=== PATIENT | male | born 2000 | race Caucasian/White ===

== ENCOUNTER 2020-10-02 15:24 | Emergency (ER) | payer OTHER ==
[2020-10-02 15:31] VITALS: BP 134/75
[2020-10-02] MEDS ORDERED: ACETAMINOPHEN 325 MG TABLET PO STA (15:45)
[2020-10-02] MEDS ORDERED: IBUPROFEN 600 MG TABLET PO STA (15:45)
--- NOTE | 2020-10-02 15:46 | ED Physician Documentation ---
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 This persisted for several minutes and has improved except mild DYSON.) Where head injury occurred: Work Timing - onset: How many hours ago (11/17) Location of injury: Right, Front Quality of pain: Aching Associated symptoms: AMS (felt dazed for several minutes, then off balance and "woobly" in legs.). No: LOC Symptoms improve with: Rest Contributing factors: No: Anticoagulated, Intoxicated Similar symptoms before: Has not had sx before Recently seen: Not recently seen Review of Systems Constitutional: denies: Fever, Chills Nose: denies: Rhinorrhea / runny nose, Congestion Throat: denies: Sore throat Respiratory: denies: Cough GI: denies: Nausea, Vomiting Skin: denies: Abrasion (s), Laceration (s) Neurologic: reports: Altered mental status (felt slightly hard to speak for few minutes.), Headache (locally at injury/impact area.). denies: Confused PD PAST MEDICAL HISTORY - Past Medical History Past Medical History: No - Allergies Allergies/Adverse Reactions: Allergies Allergy/AdvReac Type Severity Reaction Status Date / Time No Known Drug Allergies Allergy Verified 10/02/20 15:28 PD ED PE NORMAL - Vitals Vital signs reviewed: Yes - General General: Alert and oriented X 3, No acute distress, Well developed/nourished - HEENT HEENT: PERRL, EOMI (fundi normal. ), Other (mild tender right parietal area without depression/deformity. 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 There is not seen degree of symptoms or any focality to suggest needing for imaging. Shared decision with the patient is to forego CT scan.), d/w patient Departure - Departure Disposition: 01 Home, Self Care Clinical Impression: Head contusion Qualifiers: Encounter type: initial encounter Contusion of head detail: scalp Qualified Code(s): S00.03XA - Contusion of scalp, initial encounter Mild concussion Qualifiers: Encounter type: initial encounter Loss of consciousness presence/duration: without LOC Qualified Code(s): S06.0X0A - Concussion without loss of con sciousness, initial encounter Condition: Stable Record reviewed to determine appropriate education?: Yes Instructions: ED Concussion Follow-Up: [facility] [Provider Group] Comments: By your description of symptoms, it does sound like a very mild/minimal concussive symptoms. As such would have you take it easy with light duty for 1 to 2 days. Tylenol or ibuprofen as needed for mild headache or pains. Expect likely some mild headaches and perhaps a little off balance or mild slow thought process for a day or 2. If you seemed improved to your normal level within a couple of days and back to normal activity is okay. Any symptoms beyond that, follow-up with your primary care. In the next day or 2 avoid any vigorous sports or working out. Light activity is okay. Return if worsening symptoms. Your level of symptoms do not suggest any higher degree of injury such as fractures or bleeding so a CT scan is not indicated at this time. Forms: Activity restrictions
== END 2020-10-02 15:53 | disposition home or self-care (01) ==
LOC: ED 15:24
DX: S00.03XA Contusion of scalp, initial encounter (principal); S06.0X0A Concussion without loss of consciousness, initial encounter; W20.8XXA Other cause of strike by thrown, projected or falling object, initial encounter; Y93.89 Activity, other specified; Y92.89 Other specified places as the place of occurrence of the external cause; Y99.1 Military activity
CPT/HCPCS: 99282; 99284; A9270

== ENCOUNTER 2022-04-30 04:31 | Emergency (ER) | payer OTHER ==
[2022-04-30] MEDS ORDERED: ACETAMINOPHEN 325 MG TABLET PO STA (04:54)
[2022-04-30] MEDS ORDERED: SODIUM CHLORIDE 0.9% 1,000 ML IV STA (05:03)
[2022-04-30] MEDS ORDERED: KETOROLAC 30 MG/ML VIAL IVP STA (05:03)
[2022-04-30] MEDS ORDERED: DEXAMETHASONE 10 MG/ML VIAL IVP STA (05:03)
[2022-04-30] MEDS ORDERED: cefTRIAXone 1 GM in SODIUM CHLORIDE 0.9% MINIBAG 100 ML IV STA (05:04)
--- NOTE | 2022-04-30 05:06 | ED Physician Documentation ---
PD HPI URI - Stated complaint Stated Complaint: FEVER,DIZZY - Chief complaint Chief Complaint: Fever - History obtained from History obtained from: Patient - History of Present Illness Timing - onset: How many days ago (3) Timing duration: Days (3) Timing details: Gradual onset, Still present Associated symptoms: Fever, Chills, Sweats, Nasal congestion, Rhinorrhea, Dry cough, Dyspnea, Other (tonsil swelling and pain aches and pains everywhere) Improves by: Rest, Medication Similar symptoms before: Diagnosis (tonsilitis) Recently seen: Other (had COVID test done today not resulted.) - Additional information Additional information: 22-year-old 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 He has had COVID in November of this year and he did take a test today he does not have the results. Review of Systems Constitutional: reports: Fever, Chills, Myalgias, Fatigue, Sweats Eyes: denies: Decreased vision Ears: denies: Ear pain Nose: reports: Rhinorrhea / runny nose, Congestion Throat: reports: Sore throat Cardiac: denies: Chest pain / pressure, Palpitations Respiratory: reports: Dyspnea, Cough (3 and [id number] man has developed a cough congestion and a fever over the past 4 days. Tonight his mother indicates that he is "cupping both of his ears and crying uncontrollably. This patient was seen 2 months ago with his nose crusted shut despite treatment with 3 different antibio) GI: denies: Abdominal Pain, Nausea, Vomiting : denies: Dysuria, Frequency PD PAST MEDICAL HISTORY - Present Medications Home Medications: Ambulatory Orders Medication Instructions Recorded Confirmed Amox/Clav 875/125 [Augmentin] 1 each PO Q12H #20 tablet 04/30/22 Temazepam [Restoril] 15 mg PO DAILY 04/30/22 04/30/22 - Allergies Allergies/Adverse Reactions: Allergies Allergy/AdvReac Type Severity Reaction Status Date / Time No Known Drug Allergies Allergy Verified 10/02/20 15:28 PD ED PE NORMAL - Vitals Vital signs reviewed: Yes (Febrile and tachycardic) - General General: Alert and oriented X 3, Well developed/nourished, Other (Pale appearing 22-year-old male is warm to the touch.) - HEENT HEENT: Atraumatic, PERRL, EOMI, Other (Both TMs have minimal erythema the pharynx shows 2+ exudative tonsils worse on the left than the right.) - Neck Neck: Supple, no meningeal sign, No bony TTP - Cardiac Cardiac: RRR, No murmur - Respiratory Respiratory: No respiratory distress, Other (Diminished breath sounds bilaterally) - Abdomen Abdomen: Non tender - Back Back: No CVA TTP, No spinal TTP - Derm Derm: Normal color, Warm and dry, No rash - Extremities Extremities: No deformity, No edema - Neuro Neuro: Alert and oriented X 3, sample patternmaker 2-12 intact, No motor deficit, No sensory deficit, Normal speech Eye Opening: Spontaneous Motor: Obeys Commands Verbal: Oriented GCS Score: 15 - Psych Psych: Normal mood, Normal affect Results - Vitals Vitals: Vital Signs - 24 hr 04/30/22 04/30/22 04/30/22 04:47 06:05 07:24 Temperature 38.0 C H 38.9 C H 36.9 C Heart Rate 104 H 94 Respiratory 22 18 Rate Blood Pressure 128/70 117/49 L O2 Saturation 99 95 Oxygen O2 Source Room air - Labs Labs: Laboratory Tests 04/30/22 04/30/22 04/30/22 05:25 05:25 07:14 WBC 20.2 H RBC 5.16 Hgb 15.5 Hct 45.8 MCV 88.8 MCH 30.0 MCHC 33.8 RDW 12.2 Plt Count 233 MPV 11.1 Neut # (Auto) Not Reportable Lymph # (Auto) Not Reportable [place] # (Auto) Not Reportable Eos # (Auto) Not Reportable Baso # (Auto) Not Reportable Absolute Nucleated RBC Not Reportable Total Counted 100 Band Neuts % (Manual) 2 Abnorm Lymph % (Manual) 0 Nucleated RBC % Not Reportable Neutrophils # (Manual) 18.2 H Lymphocytes # (Manual) 0.6 L Monocytes # (Manual) 1.4 H Eosinophils # (Manual) 0.0 Basophils # (Manual) 0.0 Differential Comment MANUAL DIFFERENTIAL Manual Slide Review Indicated Platelet Estimate NORMAL (130-450,000) Platelet Morphology NORMAL APPEARANCE RBC Morph Micro Appear NORMAL APPEARANCE Sodium 135 Potassium 3.8 Chloride 101 Carbon Dioxide 25 Anion Gap 9.0 BUN 14 Creatinine 1.4 H Estimated GFR (MDRD) 62 L Glucose 132 H Calcium 9.5 Total Bilirubin 1.1 H AST 28 ALT 33 Alkaline Phosphatase 50 Total Protein 7.6 Albumin 4.4 Globulin 3.2 Albumin/Globulin Ratio 1.4 Lipase 31 Group A Strep Rapid Negative - Rads (name of study) chest Radiology: Prelim report reviewed (Impression: 1. No acute findings.), EMP read indepedently, See rad report PD MEDICAL DECISION MAKING - ED course Complexity details: reviewed results, re-evaluated patient, considered differential, d/w patient, d/w family ED course: 23-year-old Josh Martinez has developed a fever congestion cough tonsil swelling and aches and pains. On examination he has tonsillopharyngitis with exudate especially to the left. He has been immunized x4 against COVID and he has had COVID in November of this year. I do not suspect COVID as a cause of his fever. I suspect the tonsil on the left side is a culprit. He is administered dexamethasone Toradol saline Rocephin and Ofirmevir intravenously. He has improvement in his symptoms. Departure - Departure Disposition: 01 Home, Self Care Clinical Impression: Tonsillitis, Dehydration Condition: Stable Instructions: ED Dehydration, ED Tonsillitis Follow-Up: [facility] [Provider Group] Prescriptions: Amox/Clav 875/125 [Augmentin] 1 each PO Q12H #20 tablet Comments: Josh today it looks like the tonsil on the left side is the culprit for your illness. The recommendation is to take the antibiotic prescribed (augmentin has been e-scribed to [facility] in [place]) and to do gargles with warm water with a pinch of salt to "wash off" the tonsils. The expectation is daily improvement. Discharge Date/Time: 04/30/22 07:32
[2022-04-30] MEDS ORDERED: cefTRIAXone 1 GM VIAL ONE (05:25)
[2022-04-30] MEDS ORDERED: ONDANSETRON 4 MG/2 ML VIAL IVP STA (05:45)
[2022-04-30 06:06] VITALS: BP 117/49
[2022-04-30] MEDS ORDERED: ACETAMINOPHEN 1,000 MG/100 ML 100 ML IV ONE (06:08)
[2022-04-30 07:48] LABS: RAPID STREP SCREEN Negative (Negative)
[2022-04-30 09:00] LABS: ALBUMIN 4.4 g/dL (3.2-5.5); ALBUMIN/GLOBULIN RATIO 1.4 (1.0-2.2); BILIRUBIN,TOTAL 1.1 mg/dL (0.2-1.0); CALCIUM 9.5 mg/dL (8.5-10.3); CREATININE 1.4 mg/dL (0.6-1.2); POTASSIUM 3.8 mmol/L (3.5-5.0); TOTAL PROTEIN 7.6 g/dL (6.7-8.2)
--- NOTE | 2022-04-30 09:01 | XRAY Report ---
PROCEDURE: Chest 1 View X-Ray INDICATIONS: soa TECHNIQUE: One view of the chest was acquired. COMPARISON: None. FINDINGS: Surgical changes and devices: None. Lungs and pleura: No pleural effusions or pneumothorax. Lungs are clear. Mediastinum: Mediastinal contours appear normal. Heart size is normal. Bones and chest wall: No suspicious bony lesions. Overlying soft tissues appear unremarkable. IMPRESSION: No acute cardiopulmonary disease. Reviewed by: John Ramsey MD on 04/30/2022 9:00 AM PDT Approved by: John Ramsey MD on 04/30/2022 9:00 AM PDT Station ID: [id number]
[2022-04-30 09:17] LABS: BASOPHILS % (AUTO) 0.1 %; HCT - HEMATOCRIT 45.8 % (42.0-52.0); HGB - HEMOGLOBIN 15.5 g/dL (14.0-18.0); LYMPHOCYTES % (AUTO) 2.7 %; MEAN CORPUSCULAR HGB CONC 33.8 g/dL (32.0-36.0); MEAN CORPUSCULAR VOLUME 88.8 fL (80.0-94.0); MEAN PLATELET VOLUME 11.1 fL (7.4-11.4); MONOCYTES % (AUTO) 6.7 %; NEUTROPHILS % (AUTO) 89.9 %; PLT - PLATELET COUNT 233 10^3/uL (130-450); RED BLOOD COUNT 5.16 10^6/uL (4.70-6.10); RED CELL DISTRIBUTION WIDTH 12.2 % (12.0-15.0); WHITE BLOOD COUNT 20.2 x10^3/uL (4.8-10.8)
[2022-04-30 09:22] LABS: SLIDE REVIEW? Indicated
[2022-04-30 09:24] LABS: ABNORMAL LYMPHS % (MANUAL) 0 %
[2022-04-30 10:27] LABS: BAND NEUTROPHILS % (MANUAL) 2 %; LYMPHOCYTES # (MANUAL) 0.6 10^3/uL (1.5-3.5); LYMPHOCYTES % (MANUAL) 3 %; MONOCYTES # (MANUAL) 1.4 10^3/uL (0.0-1.0); NEUTROPHILS # (MANUAL) 18.2 10^3/uL (1.5-6.6); RBC MORPHOLOGY (MULTIPLE) NORMAL APPEARANCE (NORMAL)
[2022-04-30 10:28] LABS: DIFFERENTIAL COMMENT MANUAL DIFFERENTIAL; PLATELET ESTIMATE, MANUAL NORMAL (130-450,000) (NORMAL); PLATELET MORPHOLOGY NORMAL APPEARANCE (NORMAL)
== END 2022-04-30 07:32 | disposition home or self-care (01) ==
LOC: ED 04:31
DX: J03.90 Acute tonsillitis, unspecified (principal); E86.0 Dehydration
CPT/HCPCS: 36415; 71045; 80053; 83690; 85025; 87070; 87430; 96361; 96365; 96368; 96375; 99282; 99285; J0131

== ENCOUNTER 2023-10-13 11:00 | Outpatient (CLI) | payer OTHER ==
[2023-10-13 19:43] LABS: INFLUENZA A- RESP PCR PANEL NOT DETECTED; SARS-CoV-2 -RESP PCR PANEL NOT DETECTED
[2023-10-13 19:44] LABS: INFLUENZA B - RESP PCR PANEL NOT DETECTED; RSV- RESP PCR PANEL NOT DETECTED
== END 2023-10-13 11:15 | disposition home or self-care (01) ==
LOC: LAB.N 11:00
PROVIDERS: ATTEND Family Medicine
DX: J06.9 Acute upper respiratory infection, unspecified (principal)
CPT/HCPCS: 87637

== ENCOUNTER 2024-01-29 10:15 | Outpatient (CLI) | payer OTHER ==
--- NOTE | 2024-01-29 12:56 | MRI Report ---
PROCEDURE: Hip RT WO INDICATIONS: RIGHT HIP PAIN TECHNIQUE: Noncontrast coronal T1 spin echo and STIR through the bony pelvis. Coronal and axial T2 fast spin ec ho with fat saturation, sagittal T1 spin echo, and oblique axial T2 fast spin echo with fat saturatio n through the hip. COMPARISON: None. FINDINGS: Image quality: Diagnostic Bones Pelvic ring: No acute fracture. Femoral head and neck: No acute fracture. Ligamentum teres: Intact. Lumbar spine and sacrum: No acute finding. Tendons Abductors: Mild adjacent T2 signal may represent mild tendinopathy and bursitis, also seen on the lef t Adductors and rectus abdominis: Intact. No pubic symphyseal edema. IT band: Intact. Iliopsoas: Intact. No bursitis. Hamstrings: Intact. Rectus femoris: Intact. Joint: Joint space: No significant effusion. Labrum: Not well evaluated on this nonarthrographic study. There is no discrete fluid cleft identifie d. Cartilage: No high-grade degenerative changes. No full-thickness cartilage defect or subchondral jack a Soft tissues: Quadratus femoris: No edema or atrophy. Piriformis: Symmetric. Intrapelvic structures: Intrapelvic structures not well evaluated on this study. IMPRESSION: Possible mild trochanteric edema and abductor insertional tendinopathy. No acute fracture or dislocat ion. No high-grade degenerative changes. If there is concern for labral pathology, consider MRI arthrogram. Reviewed by: Bud Wei MD on 01/29/2024 12:54 PM PDT Approved by: Bud Wei MD on 01/29/2024 12:54 PM PDT Station ID: [id number]
== END 2024-01-29 10:16 | disposition home or self-care (01) ==
LOC: DI 10:15
PROVIDERS: ATTEND Nurse Practitioner Family
DX: S76.011A Strain of muscle, fascia and tendon of right hip, initial encounter (principal); M67.853 Other specified disorders of tendon, right hip

== ENCOUNTER 2024-03-10 18:19 | Emergency (ER) | payer OTHER ==
[2024-03-10 19:38] LABS: BILIRUBIN,URINE NEGATIVE (NEGATIVE); GLUCOSE, URINE (UA) NEGATIVE (NEGATIVE); KETONES,URINE (UA) NEGATIVE (NEGATIVE); LEUKOCYTE ESTERASE, URINE NEGATIVE (NEGATIVE); NITRITE,URINE NEGATIVE (NEGATIVE); OCCULT BLOOD,URINE NEGATIVE (NEGATIVE); PH,URINE 6.5 PH (5.0-7.5); PROTEIN,URINE NEGATIVE (NEGATIVE); UROBILINOGEN,URINE 0.2 (NORMAL) E.U./dL (NORMAL)
[2024-03-10 19:40] LABS: CLARITY,URINE CLEAR (CLEAR)
--- NOTE | 2024-03-10 19:51 | Ultrasound Report ---
PROCEDURE: Testicle w/Doppler INDICATIONS: L testicular pain TECHNIQUE: Real-time scanning was performed of the scrotum and testicles, with image documentation. Color and p ulse Doppler interrogation was performed of both testicles. COMPARISON: None. FINDINGS: Right: Testicle is normal in size at 4.5 x 2.3 x 2.5 cm, and homogenous in echotexture. Epididymis is normal in overall size and morphology. No hydrocele. No varicoceles. Overlying scrotal skin is n ormal in thickness. Left: Testicle is normal in size at 4.3 x 2.4 x 2.4 cm, and homogeneous in echotexture. Epididymis is normal in overall size and morphology. No hydrocele. No varicoceles. Overlying scrotal skin is n ormal in thickness. Doppler: Color and pulse Doppler demonstrate normal and symmetric arterial flow in both testicles. IMPRESSION: No sonographic signs of testicular torsion or epididymitis. Reviewed by: Abdiel Moise MD on 03/10/2024 7:50 PM PDT Approved by: Abdiel Moise MD on 03/10/2024 7:50 PM PDT Station ID: [id number]
--- NOTE | 2024-03-10 20:05 | ED Physician Documentation ---
History of Present Illness - Stated complaint Stated Complaint: MALE PAIN - Chief complaint Chief Complaint: General - History obtained from History obtained from: Patient - History of Present Illness Timing: Today Pain level max: 5 Pain level now: 5 - Additonal information Additional information: 24-year-old male states that he had sexual intercourse earlier today and then developed a left-sided scrotal pain. He states is not in the testicle itself but just above the testicle. He states that the pain was present immediately after intercourse, it then resolved, but then recurred later in the afternoon. Decided to come in for evaluation. No redness, no swelling. No changes in sexual partners. No STD exposure that he is aware of. He states the pain is mostly a dull ache at this point. No swelling. No penile discharge. No dysuria. No frequency. No abdominal pain or back pain. No flank pain Review of Systems Constitutional: denies: Fever, Chills Respiratory: denies: Cough GI: denies: Abdominal Pain, Vomiting, Diarrhea : denies: Dysuria, Frequency, Hesitancy, Hematuria, Discharge Skin: denies: Rash Musculoskeletal: denies: Neck pain, Back pain, Extremity pain PD PAST MEDICAL HISTORY - Past Medical History Past Medical History: No - Past Surgical History Past Surgical History: Yes HEENT: Tonsil/Adenoidectomy - Present Medications Home Medications: Ambulatory Orders Medication Instructions Recorded Confirmed Amox/Clav 875/125 [Augmentin] 1 each PO Q12H #20 tablet 04/30/22 Temazepam [Restoril] 15 mg PO DAILY 04/30/22 04/30/22 - Allergies Allergies/Adverse Reactions: Allergies Allergy/AdvReac Type Severity Reaction Status Date / Time No Known Drug Allergies Allergy Verified 03/10/24 18:23 - Social History Does the pt smoke?: No Smoking Status: Never smoker Does the pt drink ETOH?: Yes Does the pt have substance abuse?: No - Immunizations Immunizations are current?: Yes - POLST Patient has POLST: No PD ED PE NORMAL - Vitals Vital signs reviewed: Yes - General General: Alert and oriented X 3, No acute distress - HEENT HEENT: Moist mucous membranes - Neck Neck: Supple, no meningeal sign - Cardiac Cardiac: RRR - Respiratory Respiratory: No respiratory distress, Clear bilaterally - Abdomen Abdomen: Soft, Non tender, Non distended - Male Male : Other (Normal testicular exam. Normal lie. No swelling. No masses. Normal overlying scrotum. No inguinal hernia. Does have mild tenderness near the proximal portion of the left hemiscrotum. No masses appreciated. Otherwise normal exam) - Back Back: No CVA TTP - Derm Derm: Warm and dry, No rash Results - Vitals Vitals: Vital Signs - 24 hr 03/10/24 03/10/24 03/10/24 18:23 19:26 20:00 Temperature 36.8 C 36.8 C 36.8 C Heart Rate 66 66 66 Respiratory 16 16 16 Rate Blood Pressure 134/63 H 130/60 130/60 O2 Saturation 96 98 98 Oxygen O2 Source Room air - Labs Labs: Laboratory Tests 03/10/24 03/10/24 19:20 19:20 Urine Color YELLOW Urine Clarity CLEAR Urine pH 6.5 Ur Specific [place] 1.020 Urine Protein NEGATIVE Urine Glucose (UA) NEGATIVE Urine Ketones NEGATIVE Urine Occult Blood NEGATIVE Urine Nitrite NEGATIVE Urine Bilirubin NEGATIVE Urine Urobilinogen 0.2 (NORMAL) Ur Leukocyte Esterase NEGATIVE Ur Microscopic Review NOT INDICATED Urine Culture Comments NOT INDICATED Chlam trachomat DNA PCR NEGATIVE N.gonorrhoeae DNA (PCR) NEGATIVE T. vaginalis (PCR) NEGATIVE - Rads (name of study) Testicular ultrasound Relevant Findings:: Final report received, See rad report PD Medical Decision Making - ED course Complexity details: reviewed results, re-evaluated patient, considered differential, d/w patient ED course: No acute findings on testicular ultrasound. No acute findings on urinalysis. STD testing is negative. Unclear etiology of his symptoms. No evidence of inguinal hernia. Recommend that he follow-up with his PCP for further care. Recommend that he return if he worsens. He states pain is improving now. No abdominal pain or tenderness. No evidence of referred pain or ureterolithiasis. Patient counseled regarding signs and symptoms for which I believe and urgent re-evaluation would be necessary. Patient with good understanding of and agreement to plan and is comfortable going home at this time This document was made in part using voice recognition software. While efforts are made to proofread this document, sound alike and grammatical errors may occur. Departure - Departure Disposition: 01 Home, Self Care Clinical Impression: Testicular/scrotal pain Condition: Good Instructions: ED Testicular Pain [facility] Follow-Up: Monster Powers MD [Provider Admit Priv/Credential] - your,doctor in 1 week [Other] Comments: Your ultrasound and urinalysis are negative today. The cause of your pain is unclear. There does not appear to be any hernias and no palpable hernias. You are not having any abdominal pain, back pain or flank pain. This should improve over the next day, if it fails to improve, you can follow-up with urology for further care. You can use Motrin or Tylenol as needed for pain at home. Please return if you worsen. Forms: PCP List Discharge Date/Time: 03/10/24 20:12
[2024-03-10 20:14] VITALS: BP 130/60; O2SAT 98
[2024-03-10 22:14] LABS: CHLAMYDIA TRACHOMATIS DNA NEGATIVE (NEGATIVE); NEISSERIA GONORRHOEAE DNA NEGATIVE (NEGATIVE); TRICHOMONAS VAGINALIS DNA NEGATIVE (NEGATIVE)
== END 2024-03-10 20:12 | disposition home or self-care (01) ==
LOC: ED 18:19
DX: N50.82 Scrotal pain (principal)
CPT/HCPCS: 81001; 81003; 87086; 87491; 87591; 87661; 93975; 99283; 99284